=== PATIENT | male | born 2000 | race Caucasian/White ===

== ENCOUNTER 2021-02-02 20:43 | Emergency (ER) | payer OTHER ==
[~2021-02-02] VITALS: Ht 172.7 cm; Wt 81.6 kg
[2021-02-02 20:50] VITALS: BP_SYST 140
[2021-02-02] MEDS ORDERED: LIDOCAINE 1% 10 MG/ML, 20 ML MDV INJ ONE (23:00)
[2021-02-02] MEDS ORDERED: LIDOCAINE 1%, 20 ML MDV 20 ML ONE (23:04)
[2021-02-02] MEDS ORDERED: BACITRACIN 1 GM OINT TP ONE (23:53)
[2021-02-02] MEDS ORDERED: CEPH250C PO (23:58)
[2021-02-03] MEDS ORDERED: BACITRACIN ZINC 15 GM TOPICAL OINTMENT TP ONE
[2021-02-03 00:07] VITALS: BP_SYST 128
== END 2021-02-03 00:07 | disposition home or self-care (01) ==
LOC: SED 20:43
DX: S91.012A Laceration without foreign body, left ankle, initial encounter (principal); Z79.899 Other long term (current) drug therapy; W45.8XXA Other foreign body or object entering through skin, initial encounter; Y93.89 Activity, other specified; Y92.89 Other specified places as the place of occurrence of the external cause; Y99.8 Other external cause status
CPT/HCPCS: 12001; 99283; J2001